=== PATIENT | female | born 1975 | race Caucasian/White ===

== ENCOUNTER 2016-04-22 09:43 | Emergency (ER) | payer SELFPAY ==
--- NOTE | 2016-04-22 11:09 | EKG REPORT ---
SEVERITY:- NORMAL ECG - SINUS RHYTHM : Confirmed by: Deangelo Avalos MD 22-Apr-2016 11:08:01
[2016-04-22] MEDS ORDERED: ALBUTEROL SULFATE HFA (90 MCG/PUFF) 8 GM MDI (1 MDI/ER DISP) IH ONE (11:15)
--- NOTE | 2016-04-22 11:16 | ER Document Report ---
ED General - General Chief Complaint: Chest Tightness Stated Complaint: TIGHT CHEST, SHORTNESS OF BREATH Mode of Arrival: Ambulatory Information source: Patient Notes: Patient presents to the emergency department with complaints of cough. Patient reports she had a bad cough from December to February. She tried natural homeopathic treatment for it and it finally went away. She reports her daughter came home from college week ago and was sick and now she is coughing again. She denies fever vomiting diarrhea. She denies history of asthma or cardiac disease. Denies family history of cardiac disease. She reports she coughs mostly in the morning when she first wakes up. She will reports she woke up this morning with a really bad cough felt like she couldn't catch her breath so that is why she came in today. She has not followed up with a provider for this cough at all. She reports she's been using Flonase to open up her nose but quit taking it because her nose felt dried out. TRAVEL OUTSIDE OF THE [place] IN LAST 30 DAYS: No - HPI Onset: Other Quality of pain: Achy Pain Level: 4 Associated symptoms: Productive cough Exacerbated by: Coughing Relieved by: Denies Similar symptoms previously: Yes Recently seen / treated by doctor: No - Related Data Allergies/Adverse Reactions: Penicillins Allergy (Verified 04/22/16 09:48) Past Medical History - General Information source: Patient Last Menstrual Period: 2 weeks ago - Social History Smoking Status: Former Smoker - quit years ago Cigarette use (# per day): No - uses vap occassionally Chew tobacco use (# tins/day): No Frequency of alcohol use: None Drug Abuse: None Lives with: Family Family History: Reviewed & Not Pertinent Patient has suicidal ideation: No Patient has homicidal ideation: No - Medical History Medical History: Negative Renal/ Medical History: Denies: Hx Peritoneal Dialysis Past Surgical History: Reports: Hx Tubal Ligation Review of Systems - Review of Systems Notes: Review HPI for review of systems., All other systems negative Physical Exam - Vital signs Vitals: Temp Pulse Resp BP Pulse Ox 98.2 F 75 20 129/76 H 97 04/22/16 10:00 04/22/16 10:00 04/22/16 10:00 04/22/16 10:00 04/22/16 10:00 - Notes Notes: PHYSICAL EXAMINATION: GENERAL: Well-appearing and in no acute distress nontoxic looking HEAD: Atraumatic, normocephalic. EYES: Pupils equal round and reactive to light, extraocular movements intact, sclera anicteric, conjunctiva are normal. ENT: nares patent, oropharynx clear without exudates. Moist mucous membranes. + post nasal drip NECK: Normal range of motion, supple without lymphadenopathy LUNGS: CTAB and equal. No wheezes rales or rhonchi. occasional cough HEART: Regular rate and rhythm without murmurs ABDOMEN: Soft, no tenderness. No guarding, no rebound BACK: Some ttp upper back trapezius area bilateral EXTREMITIES: Normal range of motion, no pitting edema. No cyanosis. NEUROLOGICAL: Cranial nerves grossly intact. Normal sensory/motor exams. PSYCH: Normal mood, normal affect. SKIN: Warm, Dry, normal turgor, no rashes or lesions noted Course - Vital Signs Vital signs: Temp Pulse Resp BP Pulse Ox 98.2 F 75 20 129/76 H 97 04/22/16 10:00 04/22/16 10:00 04/22/16 10:00 04/22/16 10:04/22/16 10:00 Discharge - Discharge Clinical Impression: Cough, Post-nasal drip, Bronchitis, Elevated blood pressure reading Condition: Stable Disposition: HOME, SELF-CARE Instructions: Steroid Medication, Bronchodilators ([facility]), Bronchitis ([facility]), Decongestant-Antihistamine Medication ([facility]), Tessalon Perles ([facility]) Additional Instructions: *You have been evaluated for a cough, bronchitis, post nasal drip *Take medication as prescribed for cough *Take over the counter nasal decongestant such as mucinex D or zyrtec D *Increase fluids *Use inhaler as indicated 2 puffs every four hours for cough *Monitor your temperature, take Tylenol as indicated *Follow up with a primary care provider within 5 days for recheck *Monitor your blood pressure. Your blood pressure was elevated today. This may be because you were anxious, in pain or because you need medication. It is important to follow up with your primary care provider for full evaluation. *Return to ED for increasing fever, cough, worsening condition, changes, needs, trouble breathing, concerns Prescriptions: Benzonatate [Tessalon Perles 100 mg Capsule] 100 mg PO ASDIR PRN #40 capsule PRN Reason: Prednisone [Deltasone 10 mg Tablet] 10 mg PO ASDIR PRN #21 tablet PRN Reason: Forms: Elevated Blood Pressure
[2016-04-22 11:47] VITALS: BP 121/58
== END 2016-04-22 11:46 | disposition home or self-care (01) ==
LOC: ER 09:43
DX: J40 Bronchitis, not specified as acute or chronic (principal); R09.82 Postnasal drip; R03.0 Elevated blood-pressure reading, without diagnosis of hypertension; R07.9 Chest pain, unspecified; R06.02 Shortness of breath; Z88.0 Allergy status to penicillin; Z87.891 Personal history of nicotine dependence; Z98.51 Tubal ligation status
CPT/HCPCS: 93005; 99285; 71020; 93010; J3490